=== PATIENT | female | born 2000 | race Caucasian/White ===

== ENCOUNTER 2024-10-02 00:36 | Emergency (ER) | payer OTHER ==
[2024-10-02] MEDS ORDERED: Lidocaine 1%/Epinephrine 1:100K 10 ML VIAL ONE (01:06)
[2024-10-02] MEDS ORDERED: Bacitracin 1 PK ONE (01:31)
== END 2024-10-02 01:37 | disposition home or self-care (01) ==
LOC: BURERS 00:36
DX: S61.411A Laceration without foreign body of right hand, initial encounter (principal); W26.8XXA Contact with other sharp object(s), not elsewhere classified, initial encounter
CPT/HCPCS: 12002; 99282